=== PATIENT | female | born 1985 | race Caucasian/White ===

== ENCOUNTER 2018-05-22 18:34 | Emergency (ER) | payer SELFPAY ==
--- NOTE | 2018-05-22 19:26 | ER Document Report ---
ED Medical Screen (RME) - General Chief Complaint: Dizziness Stated Complaint: NECK SWELLING, JAW TIGHTNESS, DIZZY Time Seen by Provider: 05/22/18 19:23 Notes: 33 years old female presents today with a sensation of baseball sitting in the throat as particularly when she is trying to lay down to sleep the sensation is increased and have difficulty in breathing therefore presents. She has bilateral thyroid enlargement. TRAVEL OUTSIDE OF THE [place] IN LAST 30 DAYS: No - Related Data Allergies/Adverse Reactions: No Known Allergies Allergy (Verified 05/22/18 18:35) Past Medical History - Social History Frequency of alcohol use: Rare Drug Abuse: Marijuana Renal/ Medical History: Denies: Hx Peritoneal Dialysis Physical Exam - Vital signs Vitals: Temp Pulse Resp BP Pulse Ox 98.1 F 72 16 136/75 H 99 05/22/18 18:37 05/22/18 18:37 05/22/18 18:37 05/22/18 18:37 05/22/18 18:37 Course - Vital Signs Vital signs: Temp Pulse Resp BP Pulse Ox 98.1 F 72 16 136/75 H 99 05/22/18 18:37 05/22/18 18:37 05/22/18 18:37 05/22/18 18:37 05/22/18 18:37
[2018-05-22 19:54] LABS: ABSOLUTE BASOPHILS # (AUTO) 0.1 10^3/uL (0.0-0.2); ABSOLUTE EOSINOPHILS # (AUTO) 0.1 10^3/uL (0.0-0.6); ABSOLUTE LYMPHOCYTES (AUTO) 2.2 10^3/uL (0.5-4.7); ABSOLUTE MONOCYTES (AUTO) 0.4 10^3/uL (0.1-1.4); BASOPHILS % (AUTO) 0.7 % (0-2); EOSINOPHILS % (AUTO) 1.4 % (0-6); HEMOGLOBIN 14.7 g/dL (12.0-15.5); LYMPHOCYTES % (AUTO) 24.8 % (13-45); MEAN CORPUSCULAR HEMOGLOBIN 31.3 pg (27.0-33.4); MEAN CORPUSCULAR HGB CONC 35.1 g/dL (32.0-36.0); MEAN CORPUSCULAR VOLUME 89 fl (80-97); MONOCYTES % (AUTO) 4.7 % (3-13); PLATELET COUNT 190 10^3/uL (150-450); RED BLOOD COUNT 4.71 10^6/uL (3.72-5.28); RED CELL DISTRIBUTION WIDTH 12.9 % (11.5-14.0); SEGMENTED NEUTROPHILS % (AUTO) 68.4 % (42-78); TOTAL CELLS COUNTED % (AUTO) 100 %; WHITE BLOOD COUNT 8.8 10^3/uL (4.0-10.5)
[2018-05-22 20:10] LABS: ALANINE AMINOTRANSFERASE 24 U/L (9-52); ALBUMIN 4.7 g/dL (3.5-5.0); ALKALINE PHOSPHATASE 74 U/L (38-126); ANION GAP 12 (5-19); ASPARTATE AMINO TRANSFERASE 21 U/L (14-36); BILIRUBIN,DIRECT 0.2 mg/dL (0.0-0.4); BILIRUBIN,TOTAL 0.5 mg/dL (0.2-1.3); BLOOD UREA NITROGEN 11 mg/dL (7-20); CALCIUM 9.9 mg/dL (8.4-10.2); CARBON DIOXIDE 28 mmol/L (22-30); CHLORIDE 104 mmol/L (98-107); GLUCOSE 96 mg/dL (75-110); POTASSIUM 4.3 mmol/L (3.6-5.0); SODIUM 143.9 mmol/L (137-145); TOTAL PROTEIN 7.4 g/dL (6.3-8.2)
--- NOTE | 2018-05-22 20:10 | RADIOLOGY REPORT (SQ) ---
EXAM DESCRIPTION: CT SOFT TISSUE NECK WITH COMPLETED DATE/TIME: 05/22/2018 7:52 pm REASON FOR STUDY: Swelling of the thyroid gland, difficulty breathin COMPARISON: None. TECHNIQUE: Post IV contrasted scanning from skull base through lung apices with review of bone, soft tissue and lung windows. Reconstructed coronal and sagittal MPR images reviewed. All images stored on PACS. All CT scanners at this facility use dose modulation, iterative reconstruction, and/or weight based d osing when appropriate to reduce radiation dose to as low as reasonably achievable (ALARA). [facility]: Dose Right [facility]: CareDose [facility]: Dose Right [facility]: Teradose 4D [facility]: [place] CONTRAST TYPE AND DOSE: contrast/concentration: Omnipaque 350.00 mg/ml; Total Contrast Delivered: 7 5.0 ml; Total Saline Delivered: 55.0 ml 75 mL Omnipaque 350- low osmolar. RENAL FUNCTION: None required. The patient is less than 50 years old. RADIATION DOSE: CT Rad equipment meets quality standard of care and radiation dose reduction techniq ues were employed. CTDIvol: 15.1 mGy. DLP: 582 mGy-cm. . LIMITATIONS: None. FINDINGS: SKULL BASE: Intact. MAJOR SALIVARY GLANDS: No solid or cystic masses. No inflammatory changes. LYMPHADENOPATHY: No adenopathy. MUCOSAL MASSES OR ASYMMETRY: The lingual tonsils are prominent. LARYNX/CORDS: No abnormal findings. VASCULAR STRUCTURES: The major vessels are patent. LUNG APICES: Clear. BONES: Intact. THYROID: Normal size. No masses. PARANASAL SINUSES: Clear. OTHER: No other significant finding. IMPRESSION: The lingual tonsils are prominent. Thyroid gland is normal. TECHNICAL DOCUMENTATION: JOB ID: [id number] Quality ID # [id number]: Final reports with documentation of one or more dose reduction techniques (e.g., Au tomated exposure control, adjustment of the mA and/or kV according to patient size, use of iterative reconstruction technique) 2010 [employer]- All Rights Reserved Reading location - IP/workstation name: [email or web address]
[2018-05-22 20:28] LABS: FREE T3 3.37 pg/mL (2.77-5.27); FREE T4 (FREE THYROXINE) 0.85 ng/dL (0.78-2.19)
[2018-05-22 20:30] LABS: APPEARANCE,URINE CLEAR; BILIRUBIN,URINE NEGATIVE (NEGATIVE); COLOR,URINE YELLOW; GLUCOSE, URINE NEGATIVE (NEGATIVE); KETONES,URINE NEGATIVE (NEGATIVE); LEUKOCYTE ESTERASE,URINE NEGATIVE (NEGATIVE); NITRITE,URINE NEGATIVE (NEGATIVE); PROTEIN,URINE NEGATIVE (NEGATIVE); UROBILINOGEN,URINE NEGATIVE mg/dL (<2.0)
[2018-05-22 20:42] LABS: THYROID STIMULATING HORMONE 3.19 uIU/mL (0.47-4.68)
[2018-05-22] MEDS ORDERED: DIAZEPAM INJ 10 MG/2 ML DISP.SYRIN IV ONE (21:06)
[2018-05-22] MEDS ORDERED: ONDANSETRON HCL INJ/PF 4 MG/2 ML SDV IV ONE (21:06)
--- NOTE | 2018-05-22 21:06 | ER Document Report ---
ED General - General Chief Complaint: Dizziness Stated Complaint: NECK SWELLING, JAW TIGHTNESS, DIZZY Time Seen by Provider: 05/22/18 19:23 Mode of Arrival: Ambulatory Information source: Patient TRAVEL OUTSIDE OF THE [place] IN LAST 30 DAYS: No - HPI Patient complains to provider of: Neck swelling, TMJ tightness Onset: Last week Onset/Duration: Gradual Exacerbated by: Denies Relieved by: Denies Notes: Patient is a 33-year-old female presenting to the emergency room complaining of increased neck swelling for approximately 10 days, worsening over the past 3 days, states when she lays back flat she feels a lump in her throat sensation, it is caused her to have decreased sleep, she denies any difficulty swallowing or breathing, no fevers, she does have occasional nausea but relates this to migraine headaches which she gets at least once or twice a week, she reports some tightness at her TMJs as well, states that she had an ultrasound of her thyroid approximately 6 months ago and was told it was normal, currently smokes a proximally one half a pack per day, denies - Related Data Allergies/Adverse Reactions: No Known Allergies Allergy (Verified 05/22/18 18:35) Past Medical History - General Information source: Patient - Social History Smoking Status: Current Every Day Smoker Frequency of alcohol use: Rare Drug Abuse: Marijuana Family History: Reviewed & Not Pertinent Patient has suicidal ideation: No Patient has homicidal ideation: No Neurological Medical History: Reports: Hx Migraine Renal/ Medical History: Denies: Hx Peritoneal Dialysis Past Surgical History: Reports: Hx Tonsillectomy - with adnoids Review of Systems - Review of Systems Constitutional: No symptoms reported EENT: See HPI Cardiovascular: No symptoms reported Respiratory: No symptoms reported Gastrointestinal: Nausea Genitourinary: No symptoms reported Female Genitourinary: No symptoms reported Musculoskeletal: No symptoms reported Skin: No symptoms reported Hematologic/Lymphatic: No symptoms reported Neurological/Psychological: No symptoms reported -: Yes All other systems reviewed and negative Physical Exam - Vital signs Vitals: Temp Pulse Resp BP Pulse Ox 98.1 F 72 16 136/75 H 99 05/22/18 18:37 05/22/18 18:37 05/22/18 18:37 05/22/18 18:37 05/22/18 18:37 Interpretation: Normal - General General appearance: Appears well, Alert - HEENT Head: Normocephalic, Atraumatic Eyes: Normal Conjunctiva: Normal Extraocular movements intact: Yes Eyelashes: Normal Pupils: PERRL Sinus: Normal Nasal: Normal Mouth/Lips: Normal Pharynx: Normal Neck: Normal, Supple. No: Lymphadenopathy, Neck mass, Subcutaneous emphysema, Thyroid nodule, Thyromegally - Respiratory Respiratory status: No respiratory distress Chest status: Nontender Breath sounds: Normal Chest palpation: Normal - Cardiovascular Rhythm: Regular Heart sounds: Normal auscultation Murmur: No - Abdominal Inspection: Normal Distension: No distension Bowel sounds: Normal Tenderness: Nontender Organomegaly: No organomegaly - Back Back: Normal, Nontender - Extremities General upper extremity: Normal inspection, Nontender, Normal color, Normal ROM , Normal temperature General lower extremity: Normal inspection, Nontender, Normal color, Normal ROM , Normal temperature, Normal weight bearing. No: Zaida's sign - Neurological Neuro grossly intact: Yes Cognition: Normal Orientation: AAOx4 Parker Coma Scale Eye Opening: Spontaneous [place] Coma Scale Verbal: Oriented [place] Coma Scale Motor: Obeys Commands [place] Coma Scale Total: 15 Speech: Normal Motor strength normal: LUE, RUE, LLE, RLE Sensory: Normal - Psychological Associated symptoms: Normal affect, Normal mood - Skin Skin Temperature: Warm Skin Moisture: Dry Skin Color: Normal Course - Re-evaluation Re-evalutation: 05/22/18 23:35 Patient resting comfortably, stable vital signs, lab and imaging findings discussed at bedside which are unremarkable, advised to follow-up with her primary care provider or return if symptoms worsen, patient acknowledges understanding and agreement with this plan - Vital Signs Vital signs: Temp Pulse Resp BP Pulse Ox 98.2 F 63 18 115/68 100 05/22/18 21:36 05/22/18 21:36 05/22/18 21:36 05/22/18 21:36 05/22/18 21:36 - Laboratory Result Diagrams: 05/22/18 19:32 05/22/18 19:32 - Diagnostic Test Radiology reviewed: Image reviewed, Reports reviewed Discharge - Discharge Clinical Impression: Neck swelling Condition: Stable Disposition: HOME, SELF-CARE Additional Instructions: Follow up with your primary care provider and ENT in one to 2 days. Return to the emergency room immediately if symptoms worsen or any additional concerns. Referrals: MARTI MCCORD DO [ASSOCIATE] - Follow up as needed
[2018-05-22 21:40] VITALS: BP 115/68
== END 2018-05-22 21:39 | disposition home or self-care (01) ==
LOC: ER 18:34
DX: R22.1 Localized swelling, mass and lump, neck (principal); R42 Dizziness and giddiness; R68.84 Jaw pain; F17.200 Nicotine dependence, unspecified, uncomplicated
CPT/HCPCS: 36415; 70491; 80053; 81001; 81025; 84439; 84443; 84481; 85025; 99284

== ENCOUNTER 2018-09-29 14:18 | Emergency (ER) | payer BC ==
[2018-09-29] MEDS ORDERED: ACETAMINOPHEN WITH CODEINE #3 TABLET PO ONE (15:06)
--- NOTE | 2018-09-29 15:11 | ER Document Report ---
ED Medical Screen (RME) - General Chief Complaint: Vag Bleeding, +preg <12wks Stated Complaint: DIZZY,BACK PAIN Time Seen by Provider: 09/29/18 14:52 Mode of Arrival: Wheelchair Information source: Patient Notes: Patient presents to the emergency department with complaints of severe left lower quadrant pelvic pain. Patient reports that she recently had IUD in. They discovered she was . They removed the IUD. HCG levels are still going up. Patient has a history of ectopic . She has had one abdominal ultrasound and one transvaginal ultrasound completed. Patient had an appointment with [facility] today at 1500 but came to the emergency department due to severe pain. Reports it hurts to walk. I contacted Dr. Waggoner the OB supervisor [employer]. He advised to repeat transvaginal ultrasound to evaluate for fluids. He also advised repeat labs. I have greeted and performed a rapid initial assessment of this patient. A comprehensive ED assessment and evaluation of the patient, analysis of test results and completion of the medical decision making process will be conducted by additional ED providers. TRAVEL OUTSIDE OF THE [place] IN LAST 30 DAYS: No - Related Data Allergies/Adverse Reactions: No Known Allergies Allergy (Verified 09/29/18 14:19) Past Medical History Neurological Medical History: Reports: Hx Migraine Renal/ Medical History: Denies: Hx Peritoneal Dialysis Past Surgical History: Reports: Hx Tonsillectomy - with adnoids Physical Exam - Vital signs Vitals: Temp Pulse Resp BP Pulse Ox 97.8 F 64 16 117/54 L 100 09/29/18 14:25 09/29/18 14:25 09/29/18 14:25 09/29/18 14:25 09/29/18 14:25 Course - Vital Signs Vital signs: Temp Pulse Resp BP Pulse Ox 97.8 F 64 16 117/54 L 100 09/29/18 14:25 09/29/18 14:25 09/29/18 14:25 09/29/18 14:25 09/29/18 14:25
[2018-09-29 15:55] LABS: ABSOLUTE EOSINOPHILS # (AUTO) 0.1 10^3/uL (0.0-0.6); ABSOLUTE LYMPHOCYTES (AUTO) 1.1 10^3/uL (0.5-4.7); ABSOLUTE MONOCYTES (AUTO) 0.5 10^3/uL (0.1-1.4); ABSOLUTE NEUT (AUTO) 9.7 10^3/uL (1.7-8.2); BASOPHILS % (AUTO) 0.4 % (0-2); EOSINOPHILS % (AUTO) 0.8 % (0-6); HEMATOCRIT 42.6 % (36.0-47.0); HEMOGLOBIN 14.5 g/dL (12.0-15.5); LYMPHOCYTES % (AUTO) 9.3 % (13-45); MEAN CORPUSCULAR HEMOGLOBIN 30.9 pg (27.0-33.4); MEAN CORPUSCULAR VOLUME 91 fl (80-97); MONOCYTES % (AUTO) 4.6 % (3-13); PLATELET COUNT 170 10^3/uL (150-450); RED BLOOD COUNT 4.69 10^6/uL (3.72-5.28); RED CELL DISTRIBUTION WIDTH 13.8 % (11.5-14.0); SEGMENTED NEUTROPHILS % (AUTO) 84.9 % (42-78); TOTAL CELLS COUNTED % (AUTO) 100 %; WHITE BLOOD COUNT 11.4 10^3/uL (4.0-10.5)
[2018-09-29 16:15] LABS: ALANINE AMINOTRANSFERASE 77 U/L (9-52); ALBUMIN 4.4 g/dL (3.5-5.0); ALKALINE PHOSPHATASE 75 U/L (38-126); ANION GAP 8 (5-19); ASPARTATE AMINO TRANSFERASE 43 U/L (14-36); BILIRUBIN,DIRECT 0.2 mg/dL (0.0-0.4); BILIRUBIN,TOTAL 0.4 mg/dL (0.2-1.3); BLOOD UREA NITROGEN 7 mg/dL (7-20); CALCIUM 9.7 mg/dL (8.4-10.2); CARBON DIOXIDE 27 mmol/L (22-30); CHLORIDE 105 mmol/L (98-107); GLUCOSE 120 mg/dL (75-110); POTASSIUM 4.2 mmol/L (3.6-5.0); SODIUM 139.9 mmol/L (137-145); TOTAL PROTEIN 7.2 g/dL (6.3-8.2)
--- NOTE | 2018-09-29 17:01 | ER Document Report ---
ED General - General Chief Complaint: Vag Bleeding, +preg <12wks Stated Complaint: DIZZY,BACK PAIN Time Seen by Provider: 09/29/18 14:52 Primary Care Provider: ARA SAMPSON PA [Primary Care Provider] - Follow up as needed Mode of Arrival: Wheelchair Notes: Patient is a 33-year-old female presents to the emergency room for generalized abdominal cramping and vaginal bleeding. Patient states she has a history of an ectopic in 2013, states she was given medications for treatment did not have to have surgery. Patient states she got with an IUD in place. States 1 week ago was removed by her [employer] [employer]. Patient is unsure of how many weeks she has. Patient states her vaginal bleeding is very light in nature going through 1 pad every 4 hours. TRAVEL OUTSIDE OF THE [place] IN LAST 30 DAYS: No - Related Data Allergies/Adverse Reactions: No Known Allergies Allergy (Verified 09/29/18 14:19) Past Medical History - General Information source: Patient - Social History Smoking Status: Current Every Day Smoker Family History: Reviewed & Not Pertinent Patient has suicidal ideation: No Patient has homicidal ideation: No Neurological Medical History: Reports: Hx Migraine Renal/ Medical History: Denies: Hx Peritoneal Dialysis Past Surgical History: Reports: Hx Tonsillectomy - with adnoids Review of Systems - Review of Systems Constitutional: No symptoms reported EENT: No symptoms reported Cardiovascular: No symptoms reported Respiratory: No symptoms reported Gastrointestinal: See HPI Genitourinary: See HPI Female Genitourinary: See HPI Musculoskeletal: No symptoms reported Skin: No symptoms reported Hematologic/Lymphatic: No symptoms reported Neurological/Psychological: No symptoms reported Physical Exam - Vital signs Vitals: Temp Pulse Resp BP Pulse Ox 97.8 F 64 16 117/54 L 100 09/29/18 14:25 09/29/18 14:25 09/29/18 14:25 09/29/18 14:25 09/29/18 14:25 - Notes Notes: GENERAL: Alert, interacts well. No acute distress. HEAD: Normocephalic, atraumatic. EYES: Pupils equal, round, and reactive to light. Extraocular movements intact. ENT: Oral mucosa moist, tongue midline. NECK: Full range of motion. Supple. Trachea midline. LUNGS: Clear to auscultation bilaterally, no wheezes, rales, or rhonchi. No respiratory distress. HEART: Regular rate and rhythm. No murmur ABDOMEN: Soft, non-tender. Non-distended. Bowel sounds present in all 4 quadrants. Generalized mild suprapubic and bilateral pelvic pain noted only upon deep palpation. EXTREMITIES: Moves all 4 extremities spontaneously. No edema, normal radial and dorsalis pedis pulses bilaterally. No cyanosis. BACK: no cervical, thoracic, lumbar midline tenderness. No saddle anesthesia, normal distal neurovascular exam. NEUROLOGICAL: Alert and oriented x3. Normal speech. cranial nerves II through XII grossly intact PSYCH: Normal affect, normal mood. SKIN: Warm, dry, normal turgor. No rashes or lesions noted. Course - Re-evaluation Re-evalutation: 09/29/18 17:00 Upon initial examination of the patient's abdomen she states she has minor ten derness bilateral pelvic and suprapubic region. Upon palpation patient does not grimace. Patient's vitals are overall stable at this time. Ultrasound results relayed to me through Dr. Matos. Currently awaiting quantitative hCG, paged [employer] [employer]. 09/29/18 17:25 Discussed this case with [employer] component inspector Dr. Christopher Waggoner who is requesting methotrexate to be given. Strict return precautions and he would like to see the patient in his office tomorrow. Discussed this with Cat recharger, orders for methotrexate have been faxed to pharmacy. Upon reexamination of patient's abdomen she states she no longer has any pain. States she just feels tired. Patient is requesting to eat at this time. Discussed use of ice chips and to not partake in eating at this point time until discharge. 09/29/18 20:20 Patient continues to be hemodynamically stable, denying any abdominal pain at this time. Methotrexate has been administered via protocol by staffing associate. Again discussed close follow-up with Dr. Christopher Waggoner [employer] tomorrow morning. Patient voices understanding with strict return precautions. Patient stable for discharge. - Vital Signs Vital signs: Temp Pulse Resp BP Pulse Ox 97.8 F 77 16 117/69 100 09/29/18 14:25 09/29/18 17:03 09/29/18 14:25 09/29/18 17:03 09/29/18 14:25 - Laboratory Result Diagrams: 09/29/18 15:35 09/29/18 15:35 Laboratory results interpreted by me: 09/29/18 09/29/18 09/29/18 15:35 15:35 15:35 WBC 11.4 H Seg Neutrophils % 84.9 H Lymphocytes % 9.3 L Absolute Neutrophils 9.7 H Glucose 120 H AST 43 H ALT 77 H Serum HCG, Qual POSITIVE H Beta HCG, Quant 09/29/18 15:35 WBC Seg Neutrophils % Lymphocytes % Absolute Neutrophils Glucose AST ALT Serum HCG, Qual Beta HCG, Quant 2677.40 H Discharge - Discharge Clinical Impression: Ectopic Qualifiers: Location of ectopic : unspecified location Intrauterine status: without intrauterine Qualified Code(s): O00.90 - Unspecified ectopic without intrauterine Condition: Stable Disposition: HOME, SELF-CARE Instructions: Ectopic (Stable) ([facility]), Ectopic , Non-Surgical ([facility]) Additional Instructions: As we discussed you have been seen and treated in the emergency department for a n ectopic . You have been given methotrexate in the emergency room as per request of [employer]INE [employer]IST Dr. Christopher Waggoner. He would like to see you in his office tomorrow morning. Phone number and address will be provided in this packet. Please also immediately return to the emergency room should you have an increase in your vaginal bleeding or abdominal pain comes back and is severe. Please also return to the emergency room for any other concerning symptoms. Referrals: CHRISTOPHER WAGGONER MD [ACTIVE STAFF] - Follow up as needed
--- NOTE | 2018-09-29 17:07 | RADIOLOGY REPORT (SQ) ---
EXAM DESCRIPTION: U/S OB TRANSVAG W/DOPPLER COMPLETED DATE/TIME: 09/29/2018 4:13 pm REASON FOR STUDY: preg. LLQ pain, eval for fluid, hx ectopic COMPARISON: None. TECHNIQUE: Endovaginal static and realtime grayscale images acquired of the pelvis. Additional selec lana spectral and color Doppler images recorded. All images stored on PACs. CLINICAL AGE: Not known BHCG: Pending LIMITATIONS: None. FINDINGS: UTERUS: No visualized intrauterine . Uterus is 10 x 6 x 5 cm in length. Endomet rial stripe is 5 to 6 mm in thickness. Cervix closed, 2.1 cm in length with small nabothian cysts. RIGHT ADNEXA: Normal ovary with normal vascular flow. Right ovary 4 x 2.1 x 2.6 cm in size. No adnexal free fluid. No adnexal masses. LEFT ADNEXA: Normal ovary with normal vascular flow. Left ovary 3.5 x 2.5 x 2.5 cm in size. There is a moderate amount of left adnexal blood clot in the pelvis. Patient was tender on exam of t he left adnexa. A tubular shaped echogenic structure with increased color flow is present between th e left ovary and uterus worrisome for tubal ectopic . This measures about 1 x 1 x 3 cm in s ize. FREE FLUID: Moderate amount of free pelvic fluid with low level internal echoes worrisome for hemorrh age OTHER: No other significant finding. IMPRESSION: No visualized intrauterine . Findings worrisome for left adnexal ectopic pregn cornelius between the left ovary and uterus, 1 x 1 x 3 cm in size. Moderate amount of left adnexal and cu l-de-sac hemorrhagic pelvic fluid. bHCG LEVEL NOT AVAILABLE FOR CORRELATION WITH US FINDINGS. FOLLOW-UP ULTRASOUND AND SERIAL BHCG LEVELS STRONGLY RECOMMENDED TO ACCURATELY ASSESS STATU S. COMMENT: Pertinent findings on the imaging study reported as a CRITICAL RESULT to Dr DOYLE at17:00 on 09/29/2018. Category of Critical Result: Possible Left adnexal ectopic with pelvic free fluid worrisome for hemorrhage TECHNICAL DOCUMENTATION: JOB ID: [id number] [employer] All Rights Reserved Reading location - IP/workstation name: [email or web address]
[2018-09-29] MEDS ORDERED: DISPOSABLE IM PRN (18:44)
[2018-09-29] MEDS ORDERED: METHOTREXATE SODIUM IM PRN (18:44)
[2018-09-29 20:51] VITALS: BP 134/59
== END 2018-09-29 20:51 | disposition home or self-care (01) ==
LOC: ER 14:18
DX: O00.90 Unspecified ectopic pregnancy without intrauterine pregnancy (principal)
CPT/HCPCS: 99284; 96372; 86900; 86901; 36415; 84702; 84703; 85025; 80053; 76817; 93976; J9260; J3490

== ENCOUNTER 2018-11-10 11:02 | Outpatient (CLI) | payer BC ==
[~2018-11-10 11:02] MED LIST: DEXAMETHASONE SOD PHOSPHATE INJ 4 MG/1 ML VIAL ONE; FENTANYL CITRATE INJ/PF 100 MCG/2 ML AMPUL ONE; LIDOCAINE 1%/EPINEPHRINE INJ 20 ML VIAL ONE; MIDAZOLAM 2 MG/2 ML INJ ONE; ONDANSETRON HCL INJ/PF 4 MG/2 ML SDV ONE; PROPOFOL INJ 200 MG/20 ML VIAL IV ONE; ROCURONIUM BROMIDE INJ 50 MG/5 ML VIAL IV ONE; SUCCINYLCHOLINE CHLORIDE INJ 200 MG/10 ML VIAL ONE; SUGAMMADEX SODIUM 200 MG/2 ML SDV IV ONE
[2018-11-10 11:53] LABS: HEMATOCRIT 39.2 % (36.0-47.0); HEMOGLOBIN 13.2 g/dL (12.0-15.5); MEAN CORPUSCULAR HEMOGLOBIN 30.2 pg (27.0-33.4); MEAN CORPUSCULAR HGB CONC 33.7 g/dL (32.0-36.0); MEAN CORPUSCULAR VOLUME 90 fl (80-97); PLATELET COUNT 195 10^3/uL (150-450); RED BLOOD COUNT 4.37 10^6/uL (3.72-5.28); RED CELL DISTRIBUTION WIDTH 13.3 % (11.5-14.0); WHITE BLOOD COUNT 6.6 10^3/uL (4.0-10.5)
[2018-11-10] MEDS ORDERED: FAMOTIDINE INJ/PF 20 MG/2 ML SDV IV ONE (12:19)
[2018-11-10] MEDS ORDERED: ALBUTEROL SULFATE 0.083% NEB 2.5 MG/3 ML AMPUL NEB ONE (12:20)
[2018-11-10] MEDS ORDERED: MEPERIDINE HCL/PF INJ 25 MG/1 ML DISP.SYRIN IV PRN (13:52)
[2018-11-10] MEDS ORDERED: ONDANSETRON HCL INJ/PF 4 MG/2 ML SDV IV PRN (13:52)
[2018-11-10] MEDS ORDERED: DIPHENHYDRAMINE HCL 50 MG/ML VIAL IV PRN (13:52)
[2018-11-10] MEDS ORDERED: PROMETHAZINE HCL INJ 25 MG/1 ML VIAL IV PRN ×3 (13:52→16:10)
[2018-11-10] MEDS ORDERED: FENTANYL CITRATE INJ/PF 100 MCG/2 ML AMPUL IV PRN ×2 (13:52)
[2018-11-10] MEDS ORDERED: MORPHINE SULFATE 10 MG/ML INJ IV PRN (13:52)
[2018-11-10] MEDS ORDERED: RINGERS SOLUTION,LACTATED 1,000 ML IV ONE (14:00)
[2018-11-10] MEDS ORDERED: FENTANYL CITRATE INJ/PF 100 MCG/2 ML AMPUL ONE ×2 (14:04→15:53)
[2018-11-10] MEDS ORDERED: CEFOXITIN INJ 1 GM VIAL ONE (14:16)
--- NOTE | 2018-11-10 15:10 | PDOC CONSULTATION ---
Consultation Consult Date: 11/10/18 Provider Consulted: INDIRA DOOLEY Consult reason:: colotomy History of Present Illness Admission Date/PCP: RON WILKERSON History of Present Illness: MELA BECERRA is a 33 year old female with hx of ectopic , pelvic mass, who was undergoing laparoscopic pelvic mass resection performed by Dr. Lake when it was noted that the laparoscope was inside the colon. I was called \to provide intraoperative consultation and to repair the colotomy. Past Medical History Cardiac Medical History: Denies: Coronary Artery Disease, Myocardial Infarction, Hypertension Pulmonary Medical History: Denies: Asthma, Bronchitis, Chronic Obstructive Pulmonary Disease (COPD), Pneumonia Neurological Medical History: Reports: Migraine Denies: Seizures Musculoskeltal Medical History: Denies: Arthritis Hematology: Denies: Anemia Past Surgical History Past Surgical History: Reports: Tonsillectomy - with adnoids Social History Smoking Status: Current Every Day Smoker Family History Family History: Reviewed & Not Pertinent Parental Family History Reviewed: No Children Family History Reviewed: No Sibling(s) Family History Reviewed.: No Medication/Allergy Home Medications: Escitalopram Oxalate [Lexapro] 5 mg PO DAILY 11/10/18 Omeprazole 20 mg PO DAILY 11/10/18 Topiramate [Topamax 25 mg Tablet] 25 mg PO DAILY 11/10/18 Allergies/Adverse Reactions: No Known Allergies Allergy (Verified 09/29/18 14:19) Physical Exam Vital Signs: Temp Pulse Resp BP Pulse Ox 98.4 F 72 16 113/77 100 11/10/18 12:07 11/10/18 12:07 11/10/18 12:07 11/10/18 12:07 11/10/18 12:07 Intake & Output 11/09/18 11/10/18 11/11/18 06:59 06:59 06:59 Intake Total 0 Balance 0 Weight 98.43 kg GI/Abdominal exam: PRESENT: other - single perforation of the anterior wall of the sigmoid colon Results Laboratory Results: 11/10/18 11:43 11/10/18 11/10/18 11:43 12:42 WBC 6.6 RBC 4.37 Hgb 13.2 Hct 39.2 MCV 90 MCH 30.2 MCHC 33.7 RDW 13.3 Plt Count 195 Blood Type O POSITIVE Antibody Screen NEGATIVE Assessment & Plan - Plan Summary Plan Summary: A/ Interaoperative colon injury P/ plan intraoperative repair recommend clear liquid diet till flatus, then advance diet to regular
--- NOTE | 2018-11-10 15:12 | Operative Report ---
Nonrecallable Operative Report DATE OF SURGERY: 11/10/18 PREOPERATIVE DIAGNOSIS: intraoperative colotomy POSTOPERATIVE DIAGNOSIS: same OPERATION: repair of sigmoid colotomy SURGEON: INDIRA DOOLEY ANESTHESIA: GA TISSUE REMOVED OR ALTERED: n/a COMPLICATIONS: n/a ESTIMATED BLOOD LOSS: n/a INTRAOPERATIVE FINDINGS: small colotomy (0.5 cm) anterior signoid wall PROCEDURE: see dictation
[2018-11-10] MEDS: FENTANYL CITRATE INJ/PF 100 MCG/2 ML AMPUL IV PRN ×2 (15:56→16:06)
[2018-11-10] MEDS ORDERED: RINGERS SOLUTION,LACTATED 1,000 ML IV PRN (16:10)
[2018-11-10] MEDS ORDERED: ACETAMINOPHEN 1,000 MG/100 ML RTUPB IV PRN (16:10)
[2018-11-10] MEDS ORDERED: OXYCODONE-ACETAMINOPHEN 5-325 MG TABLET PO PRN (16:10)
[2018-11-10] MEDS ORDERED: ACETAMINOPHEN 325 MG TABLET PO PRN (16:10)
[2018-11-10] MEDS ORDERED: ACETAMINOPHEN 1,000 MG/100 ML RTUPB IV ONE (16:14)
[2018-11-10] MEDS ORDERED: KETOROLAC TROMETHAMINE INJ/PF 30 MG/1 ML SDV ONE (16:14)
[2018-11-10] MEDS: HYDROMORPHONE HCL INJ/PF 2 MG/ML AMPULE ONE ×2 (16:33→16:43)
[2018-11-10] MEDS ORDERED: CEFOXITIN INJ 1 GM VIAL IV SCH (18:00)
--- NOTE | 2018-11-10 18:24 | OPERATIVE REPORT E ---
Operative Report NAME: MELA BECERRA : 1985 AGE: 33Y DATE OF SURGERY: 11/10/2018 ROOM: 212 PREOPERATIVE DIAGNOSIS: CHRONIC ECTOPIC , LARGE OVARIAN MASS. POSTOPERATIVE DIAGNOSIS: CHRONIC ECTOPIC AND PERITONEAL HEMORRHAGIC CYST AND INCIDENTAL BOWEL PERFORATION. OPERATION: Laparoscopic attempted converted to laparotomy left salpingectomy and peritoneal cystectomy and repair of bowel perforation. SURGEON: CHRISTINA CALLAWAY M.D. WILDLAND [employer]HTER SPECIALIST: Dr. Alonso ANESTHESIA: Dr. Sommer with general. FINDINGS: Enlarged left fallopian tube consistent with an ectopic , enlarged peritoneal cysts with significant amounts of old clotted blood consistent with a hemorrhagic cyst. The right fallopian tube was slightly dilated and there was a simple-appearing cyst on the right ovary. COMPLICATIONS: Incidental bowel perforation with trocar injury into the peritoneal cavity. ESTIMATED BLOOD LOSS: 500 mL TISSUE REMOVED OR ALTERED: Left fallopian tube and the peritoneal cyst and cyst wall. PROCEDURE: Patient was taken to the operating room, prepared and draped in a normal sterile fashion in dorsal lithotomy position. Under sterile conditions a Perea catheter was placed to gravity. A sterile speculum was then placed into the vagina and the cervix was grasped on the anterior lip with a single tooth tenaculum and prepped with Betadine. A Hulka clamp was then placed through the cervix for uterine manipulation. The speculum and tenaculum were then removed. Gloves were changed and attention was turned to the upper portion of the case where an umbilical skin incision was made through which the Veress needle was introduced. Entry into the peritoneal cavity could not be confirmed, therefore, I switched to direct trocar insertion. With the insertion there was noted immediately some suspicious green material. The trocar inserted was removed and the camera was introduced and it was immediately noted that we were within the lumen of the bowel, therefore the attempted laparoscopy was abandoned and we converted to an open laparotomy procedure and called general surgery for assistance and Dr. Alonso did come for assistance with the bowel. A Pfannenstiel skin incision was made with a 10 blade and carried through to the underlying layer of fascia with the same blade. The fascia was excised in the midline and extended laterally. The fascia was then dissected from the rectus muscle sharply using the Mustafa's and the rectus muscle was divided and the peritoneal cavity was entered bluntly. Dr. Alonso, once he scrubbed, did open the fascial incision vertically for greater visualization. Fortunately, the bowel injury was easily locatable as it was in the sigmoid colon just behind the uterus and after we packed away the rest of the bowel and packed the cyst carefully so that leakage of the blood would not interfere with visualization, Dr. Alonso repaired the bowel defect. Please see his operative report for details. Once the defect was repaired, we turned our attention to removal of the adnexal pathology. The bowel was carefully packed away and a retractor was placed. The uterus was localized and the fallopian tube on the left was followed out. We began with some dissection of the hemorrhagic cyst away from the bowel. The lower segment of the bowel, there was significant inflammatory process evident and this was greatly adhered. This was freed up using a right angle retractor and some sharp dissection using both Metzenbaum's as well as Bovie as needed. The peritoneal cyst was then evacuated using a suction and attention was turned once again to the left fallopian tube and ovary. At first I was not able to easily locate the ovary and we continued with some dissection of the inflammatory cyst away from the bowel until I was able to locate the fallopian tube and followed this down into the posterior cul-de-sac behind the uterus and noted at this point that it appeared that the ectopic that had been lodged in here for such a long time had been leaking blood into the peritoneum and creating a space in the pouch of Deniz that was causing the formation of the peritoneal cyst that had been previously evacuated. Underneath the fallopian tube, sucked into the pelvic sidewall, we did locate the left ovary. A LigaSure was then introduced to the surgical field and this was used to excise the left fallopian tube starting at the cornua of the uterus and following the mesosalpinx down to the fimbriated end of the ovary of the fallopian tube until the specimen was completely freed and this was packed off the field. The left ovary was inspected and found to be normal in appearance. I then turned my attention to evacuating the rest of the hemorrhagic peritoneal cyst which was still found to be partially present and this was evacuated which enabled me to locate the right ovary and fallopian tube and the above findings were noted at that point. We have discussed possible removal due to the appearance of what looked to be a possible hydrosalpinx, however, the patient had not been consented for removal and it was noted to me that the patient did desire to conserve childbearing if possible. Since it was not life threatening to the patient's condition, I left the ovary and fallopian tube intact as they did appear benign, however, and in hopes that once the inflammatory process was eliminated that hopefully the condition of the fallopian tube and ovary would improve for future childbearing. We then carefully inspected the defect of the sigmoid colon that Dr. Alonso had reinforced with a couple of additional sutures. We then copiously irrigated and suctioned and completed evacuation of the blood clots from the peritoneal cysts. The space behind the uterus was then covered with a piece of intercede to help with adhesion prevention. The retractor was removed and the laparotomy sponges were then removed. The rectus muscle and peritoneum were reapproximated with 3 stitches of 2-0 Chromic. The fascia was closed in both directions using 0-Vicryl. The subcutaneous layer was closed with plain catgut and the skin was closed with 4-0 Vicryl at both sites. The patient tolerated the procedure well. Sponge, lap, and needle counts were correct x2 and the patient was taken to recovery in stable condition. DICTATING PHYSICIAN: CHRISTINA CALLAWAY M.D. [id number] PHY#: [id number] ID: [id number] JOB#: [id number] ACCT: [id number] cc:CHRISTINA CALLAWAY M.D. >
[2018-11-10] MEDS: OXYCODONE-ACETAMINOPHEN 5-325 MG TABLET PO PRN (21:05)
[2018-11-10] MEDS ORDERED: KETOROLAC TROMETHAMINE INJ/PF 30 MG/1 ML SDV IV SCH (22:00)
[2018-11-11] MEDS: KETOROLAC TROMETHAMINE INJ/PF 30 MG/1 ML SDV IV SCH ×3 (02:24→17:47)
[2018-11-11] MEDS: MORPHINE SULFATE 10 MG/ML INJ IV PRN ×2 (05:02→12:42)
[2018-11-11] MEDS: SIMETHICONE 80 MG TAB.CHEW PO PRN ×2 (05:02→12:17)
[2018-11-11 06:34] LABS: HEMATOCRIT 36.2 % (36.0-47.0); HEMOGLOBIN 12.1 g/dL (12.0-15.5); MEAN CORPUSCULAR HEMOGLOBIN 30.2 pg (27.0-33.4); MEAN CORPUSCULAR HGB CONC 33.5 g/dL (32.0-36.0); MEAN CORPUSCULAR VOLUME 90 fl (80-97); PLATELET COUNT 206 10^3/uL (150-450); RED BLOOD COUNT 4.02 10^6/uL (3.72-5.28); RED CELL DISTRIBUTION WIDTH 12.8 % (11.5-14.0)
[2018-11-11 06:41] LABS: WHITE BLOOD COUNT 13.5 10^3/uL (4.0-10.5)
--- NOTE | 2018-11-11 10:15 | PDOC PROGRESS REPORT ---
Subjective Progress Note for:: 11/11/18 Subjective:: Claims just had flatus this am. Abdomen is soft with minimal diffuse tenderness. Dressing is dry Reason For Visit: CHRONIC ECTOPIC 9MM Physical Exam Vital Signs: Temp Pulse Resp BP Pulse Ox 99.0 F 72 15 105/51 L 99 11/11/18 08:12 11/11/18 08:12 11/11/18 08:12 11/11/18 08:12 11/11/18 08:12 Intake & Output 11/10/18 11/11/18 11/12/18 06:59 06:59 06:59 Intake Total 2350 680 Output Total 3575 600 Balance -1225 80 Weight 99.5 kg Results Laboratory Results: 11/11/18 05:32 11/10/18 11/10/18 11/11/18 11:43 12:42 05:32 WBC 6.6 13.5 H D RBC 4.37 4.02 Hgb 13.2 12.1 Hct 39.2 36.2 MCV 90 90 MCH 30.2 30.2 MCHC 33.7 33.5 RDW 13.3 12.8 Plt Count 195 206 Blood Type O POSITIVE Antibody Screen NEGATIVE Assessment & Plan - Time Time Spent with patient: 15-24 minutes - Plan Summary Plan Summary: OK to start clears and advance to soft diet as tolerated Ambulate
[2018-11-11] MEDS: DOCUSATE SODIUM 100 MG CAPSULE PO SCH ×3 (10:28→17:46)
[2018-11-11] MEDS: OXYCODONE-ACETAMINOPHEN 5-325 MG TABLET PO PRN (10:28)
[2018-11-11] MEDS ORDERED: CEFOXITIN 1 GM/D5W RTU 1 GM/50 ML RTUPB IV SCH (11:00)
[2018-11-11] MEDS ORDERED: FAMOTIDINE INJ/PF 20 MG/2 ML SDV IV ONE (11:47)
--- NOTE | 2018-11-11 17:39 | PDOC PROGRESS REPORT ---
Subjective Progress Note for:: 11/11/18 Subjective:: Patient states that her pain is controlled. She is ambulating voiding without difficulty. She is tolerating a clear diet. Her diet was advanced but she did not receive a regular diet yet. Patient would like to go home today if she tolerates her diet. Patient denies chest pain, shortness of breath, fever/chills and nausea/vomiting. Reason For Visit: CHRONIC ECTOPIC 9MM Physical Exam - Physical Exam Vital Signs: Temp Pulse Resp BP Pulse Ox 98.6 F 53 L 14 105/55 L 96 11/11/18 15:38 11/11/18 15:38 11/11/18 15:38 11/11/18 15:38 11/11/18 15:38 Intake & Output 11/10/18 11/11/18 11/12/18 06:59 06:59 06:59 Intake Total 2350 1570 Output Total 3575 1300 Balance -1225 270 Weight 99.5 kg General appearance: PRESENT: no acute distress Respiratory exam: PRESENT: clear to auscultation norberto Cardiovascular exam: PRESENT: RRR GI/Abdominal exam: PRESENT: normal bowel sounds, soft - Appropriate tenderness; incisions: Clean/Dry/intact Extremities exam: ABSENT: calf tenderness, clubbing, full ROM, joint swelling, pedal edema, tenderness, +1 edema, +2 edema, other Result Laboratory Results: 11/11/18 05:32 11/11/18 05:32 WBC 13.5 H D RBC 4.02 Hgb 12.1 Hct 36.2 MCV 90 MCH 30.2 MCHC 33.5 RDW 12.8 Plt Count 206 Assessment & Plan - Diagnosis (1) Colon injury Is this a current diagnosis for this admission?: Yes - Time Time Spent with patient: 15-24 minutes Within: within 24 hours - Plan Summary Plan Summary: Anticipate discharge later today after regular diet implemented
[2018-11-11 21:03] VITALS: BP 105/45
--- NOTE | 2018-11-11 22:14 | PDOC DISCHARGE SUMMARY ---
General - Admit/Disc Date/PCP Admission Date/Primary Care Provider: 11/11/18 13:23 RON WILKERSON Discharge Date: 11/11/18 - Discharge Diagnosis (1) Colon injury Is this a current diagnosis for this admission?: Yes (2) Status post laparotomy Is this a current diagnosis for this admission?: Yes - Additional Information Resuscitation Status: Full Code Discharge Diet: As Tolerated, Regular Discharge Activity: No Lifting Over 10 Pounds, No Lifting/Push/Pulling, Pelvic Rest, Slowly Increase Activity, No tub bath Home Medications: Escitalopram Oxalate [Lexapro] 5 mg PO DAILY 11/10/18 Omeprazole 20 mg PO DAILY 11/10/18 Topiramate [Topamax 25 mg Tablet] 25 mg PO DAILY 11/10/18 History of Present Illness Patient complains of: Persistent pelvic pain secondary to a chronic ectopic History of Present Illness: MELA BECERRA is a 33 year old female presented to the office after treatment of an ectopic with methotrexate. Her quantitative beta-hCG was down to 185 on . Patient was reporting persistent pain for the past week, daily. Patient subsequently underwent a diagnostic laparoscopy which resulted in a bowel injury. The surgery was then converted to a laparotomy with bowel repair Hospital Course Hospital Course: Hospital course was essentially uneventful and by post op day #1, patient was ambulating voiding without difficulty. Patient denied fever/chills, nausea/vomiting, shortness of breath and chest pain. She was tolerating a regular diet. On Postop day #2, patient expressed her desire to be discharged home. Physical Exam - Physical Exam Vital Signs: Temp Pulse Resp BP Pulse Ox 99.0 F 69 17 105/45 L 98 11/11/18 20:00 11/11/18 20:00 11/11/18 20:00 11/11/18 20:00 11/11/18 20:00 Intake & Output 11/10/18 11/11/18 11/12/18 06:59 06:59 06:59 Intake Total 2350 1870 Output Total 3575 1300 Balance -1225 570 Weight 99.5 kg General appearance: PRESENT: no acute distress Respiratory exam: PRESENT: clear to auscultation norberto Cardiovascular exam: PRESENT: RRR GI/Abdominal exam: PRESENT: normal bowel sounds, soft, other - Appropriate tenderness Extremities exam: ABSENT: calf tenderness, clubbing, full ROM, joint swelling, pedal edema, tenderness, +1 edema, +2 edema, other Result Laboratory Results: 11/11/18 05:32 11/11/18 05:32 WBC 13.5 H D RBC 4.02 Hgb 12.1 Hct 36.2 MCV 90 MCH 30.2 MCHC 33.5 RDW 12.8 Plt Count 206 Plan Discharge Plan: 1. Discharge home 2. Rx Percocet, ibuprofen and Keflex Time Spent: Less than 30 Minutes Acute Heart Failure Is this a Heart Failure Patient?: No
--- NOTE | 2018-11-12 07:30 | OPERATIVE REPORT E ---
Operative Report NAME: MELA BECERRA : 1985 AGE: 33Y DATE OF SURGERY: 11/10/2018 ROOM: 212 PREOPERATIVE DIAGNOSIS: INTRAOPERATIVE COLOTOMY, ANTERIOR WALL OF THE SIGMOID COLON. POSTOPERATIVE DIAGNOSIS: INTRAOPERATIVE COLOTOMY, ANTERIOR WALL OF THE SIGMOID COLON. OPERATION: Repair of sigmoid colotomy. SURGEON: INDIRA DOOLEY M.D. LINE HAUL TRUCK DRIVER: None. ESTIMATED BLOOD LOSS: Minimal. COMPLICATIONS: None. ANESTHESIA: General. FLUIDS: Not available. INDICATIONS/FINDINGS: A 33-year-old female who suffered a tubal and secondary formation of an intrapelvic mass. The surgeon, Dr. Lake was initiating the case by performing a diagnostic laparoscopy. When the endoscope was noted inside the sigmoid colon, at this point I was consulted for intraoperative consultation and to proceed with repair of the colotomy. PROCEDURE: The procedure was done in the operating room. The patient was in supine position. The abdomen was already prepped and draped. A lower transverse incision was already made and the peritoneum was entered. A sigmoid colon anterior opening less than 0.5 cm in diameter was identified. This was closed in 2 layers using 2-0 silk Lembert sutures without difficulty. Dr. Lake will dictate her portion of the procedure. DICTATING PHYSICIAN: INDIRA DOOLEY M.D. [id number] PHY#: [id number] ID: [id number] JOB#: [id number] ACCT: [id number] cc:INDIRA DOOLEY M.D. > MTDD
== END 2018-11-11 23:00 | disposition home or self-care (01) ==
LOC: OROUT 11:02 → LC 11:02 → EDSTATUS 13:00 → 2N 17:38 → OROUT 17:38 → 2N 11-11 11:02 → OROUT 11-11 11:02 → 2N 11-11 13:23 → UNDOADMIN 11-11 13:23 → LC 11-11 23:00 → UNDODISIN 11-11 23:00
PROVIDERS: ATTEND Obstetrics & Gynecology
PROC: 0UB60ZZ Excision of Left Fallopian Tube, Open Approach (ICD-10-PCS; 2018-11-10)
PROC: 0DBW0ZZ Excision of Peritoneum, Open Approach (ICD-10-PCS; 2018-11-10)
PROC: 0DQN0ZZ Repair Sigmoid Colon, Open Approach (ICD-10-PCS; 2018-11-10)
PROC: 10T20ZZ Resection of Products of Conception, Ectopic, Open Approach (ICD-10-PCS; principal; 2018-11-10 13:00)
DX: O00.102 Left tubal pregnancy without intrauterine pregnancy (principal); K91.72 Accidental puncture and laceration of a digestive system organ or structure during other procedure; G43.909 Migraine, unspecified, not intractable, without status migrainosus; Z3A.00 Weeks of gestation of pregnancy not specified; O34.80 Maternal care for other abnormalities of pelvic organs, unspecified trimester; N94.89 Other specified conditions associated with female genital organs and menstrual cycle; O99.330 Smoking (tobacco) complicating pregnancy, unspecified trimester; O99.340 Other mental disorders complicating pregnancy, unspecified trimester; Z53.31 Laparoscopic surgical procedure converted to open procedure
CPT/HCPCS: 86900; 86901; 36415 ×2; 86850; 85027 ×2; 88305 ×2; 94799; 00840; C1765; J2250; J3490 ×3; J1100; J0694 ×2; J3010; J1885 ×2; J2270; J1170; J0330; J2405; J7120; J2704; S0028 ×2; J0131; 840